=== PATIENT | female | born 1980 | race Caucasian/White ===

== ENCOUNTER 2017-01-06 18:02 | Emergency (ER) | payer OTHER ==
[~2017-01-06] VITALS: Ht 170.2 cm; Wt 78.0 kg
[~2017-01-06 18:02] MED LIST: MULT-348 PO
[2017-01-06 18:17] VITALS: BP 111/62
== END 2017-01-06 23:00 | disposition left against medical advice (07) ==
LOC: ER 18:02
DX: Z53.21 Procedure and treatment not carried out due to patient leaving prior to being seen by health care provider (principal)